=== PATIENT | female | born 1990 | race African-American/Black ===

== ENCOUNTER 2019-05-06 08:10 | Day surgery (SDC) | payer BC ==
[~2019-05-06] VITALS: Ht 162.6 cm; Wt 78.5 kg
[~2019-05-06 08:10] MED LIST: LACTATED RINGERS 1,000 ML IV SCH
[2019-05-06 09:37] LABS: BASOPHILS % 0.9 % (0.0-2.0); EOSINOPHILS % 1.7 % (0.0-5.0); HEMATOCRIT. 43.3 % (36.0-48.0); HEMOGLOBIN. 14.6 g/dL (12.0-16.0); LYMPHOCYTES % 37.8 % (20.0-50.0); MEAN CORPUSCULAR HEMOGLOBIN 27.1 pg (28.0-32.0); MEAN CORPUSCULAR VOLUME 80.7 fL (81.0-99.0); MEAN PLATELET VOLUME 8.1 fl (7.4-10.4); NEUTROPHILS % 50.6 % (40.0-76.0); PLATELET 264 x1000/uL (130-400); RED BLOOD CELL COUNT 5.37 mill/uL (4.2-5.4); RED CELL DISTRIBUTION WIDTH 13.2 % (11.6-14.6)
[2019-05-06 09:45] LABS: PARTIAL THROMBOPLASTIN TIME 32.9 sec (23.4-31.0); PROTHROMBIN TIME 10.6 sec (9.6-11.0)
[2019-05-06 09:46] LABS: UCG SCREEN NEGATIVE
[2019-05-06 09:48] LABS: CHLORIDE 110 mEq/L (98-107)
[2019-05-06] MEDS ORDERED: FENTANYL CITRATE/PF 50MCG/ML 2ML VIAL ONE ×2 (10:59→11:45)
[2019-05-06] MEDS ORDERED: ROCURONIUM BROMIDE 10MG/ML VIAL 5ML IV ONE ×2 (11:00→12:47)
[2019-05-06] MEDS ORDERED: GLYCOPYRROLATE 0.2 MG/ML 2ML VIAL ONE (11:00)
[2019-05-06] MEDS ORDERED: ALBU90AE IH (11:00)
[2019-05-06] MEDS ORDERED: MULT-222 PO (11:00)
[2019-05-06] MEDS ORDERED: NEOSTIGMINE METHYLSULFATE 1MG/ML 10 ML VIAL ONE (11:00)
[2019-05-06] MEDS ORDERED: MIDAZOLAM HCL 2 MG/2 ML VIAL ONE (11:00)
[2019-05-06] MEDS ORDERED: IBUP-2030 PO (11:00)
[2019-05-06] MEDS ORDERED: PROPOFOL 200MG/20ML VIAL IV ONE (11:00)
[2019-05-06] MEDS ORDERED: ONDANSETRON HCL 4MG/2ML INJ ONE (11:45)
[2019-05-06] MEDS ORDERED: DEXAMETHASONE 4MG/ML 1ML VIAL ONE (11:45)
[2019-05-06] MEDS ORDERED: INDOCYANINE GREEN 25 MG VIAL IV ONE (12:13)
[2019-05-06] MEDS ORDERED: METHYLENE BLUE 50 MG/10 ML AMP IV ONE (12:14)
[2019-05-06] MEDS ORDERED: SKIN ADHESIVE 0.7 GM EA TOP ONE (12:41)
[2019-05-06] MEDS ORDERED: LABETALOL HCL 5MG/ML VIAL 20ML IV ONE (13:28)
[2019-05-06] MEDS ORDERED: CEFAZOLIN SODIUM 1000MG/VIAL ONE (13:28)
[2019-05-06] MEDS ORDERED: SODIUM CHLORIDE 0.9% 10ML VIAL ONE (13:28)
[2019-05-06] MEDS ORDERED: LABETALOL 5MG/ML SYR 20 MG/4 ML SYRINGE IV PRN (13:45)
[2019-05-06] MEDS ORDERED: ONDANSETRON HCL 4MG/2ML INJ IV PRN (13:45)
[2019-05-06] MEDS ORDERED: MEPERIDINE HCL/PF 25MG/ML CPJ IV PRN (13:45)
[2019-05-06] MEDS: HYDROMORPHONE HCL/PF 2MG/ML CPJ IV PRN ×2 (14:34→14:45)
[2019-05-06 14:45] VITALS: BP 126/96
== END 2019-05-06 16:40 | disposition home or self-care (01) ==
LOC: OR 08:10
PROVIDERS: ATTEND Obstetrics & Gynecology Obstetrics
DX: N92.1 Excessive and frequent menstruation with irregular cycle (principal); N94.6 Dysmenorrhea, unspecified; E28.2 Polycystic ovarian syndrome; R10.2 Pelvic and perineal pain; Z79.899 Other long term (current) drug therapy
CPT/HCPCS: 36415; 58558; 58673; 80048; 81025; 85025; 85610; 85730; 88305; J0690; J1100; J1170; J2175; J2250; J2405; J2704; J2710; J3010; J3490; Q9968; Q9957